=== PATIENT | male | born 1995 | race African-American/Black ===

== ENCOUNTER 2019-02-04 07:27 | Emergency (ER) | payer SELFPAY ==
[~2019-02-04] VITALS: Ht 190.5 cm; Wt 74.5 kg
[~2019-02-04 07:27] MED LIST: IBUP800T48 PO; METH500T PO
[2019-02-04 07:35] VITALS: BP 129/81; PULSE 80; RESP 19; Ht 190.5 cm; Wt 74.5 kg
[2019-02-04] MEDS ORDERED: METHOCARBAMOL 750 MG TAB PO ONE (08:00)
[2019-02-04] MEDS ORDERED: IBUPROFEN 800 MG TAB PO ONE (08:00)
== END 2019-02-04 11:27 | disposition home or self-care (01) ==
LOC: FTE 07:27
DX: M54.2 Cervicalgia (principal); M54.6 Pain in thoracic spine; M25.531 Pain in right wrist
CPT/HCPCS: 72040; 72072